=== PATIENT | male | born 1985 | race Caucasian/White ===

== ENCOUNTER → 2017-06-18 | Outpatient (CLI) | payer OTHER ==
--- NOTE | 2017-06-21 10:38 | HM ---
HOLTER MONITOR REPORT [facility] [place] DATE OF SERVICE: 06/18/2017 The patient was monitored for 24 hours. The baseline rhythm is sinus mechanism with a minimum heart rate of 46 beats per minute, max heart rate 153 beats per minute and average heart rate of 78 beats per minute. Ventricular ectopic events were presented and less than 1% of the total beats count. Supraventricular ectopic events were present in less than 1% of the total beats count as well. No evidence of any sustained tachy and/or bradyarrhythmia beside sinus tachycardia. No evidence of any advanced AV block. The patient reports symptoms of heart pounding and the symptoms were associated with sinus tachycardia. CONCLUSION: 1. Sinus rhythm as the baseline mechanism. 2. Rare ventricular ectopic events. 3. Rare supraventricular ectopic events. 4. No evidence of sinus pause or sinus arrest. 5. The patient reported some symptoms of heart pounding and these symptoms were associated with sinus tachycardia. MMODL / IJN: [id number] /
== END | disposition home or self-care (01) ==
LOC: RADECHMAIN 11:51
PROVIDERS: ATTEND Internal Medicine
DX: I49.9 Cardiac arrhythmia, unspecified (principal); R55 Syncope and collapse
CPT/HCPCS: 93225; 93226

== ENCOUNTER 2017-06-19 13:55 | Emergency (ER) | payer OTHER ==
[2017-06-19 14:00] VITALS: RESP 18
[2017-06-19] MEDS ORDERED: KETOROLAC 30 MG/ML 1 ML VIAL IVP STA (14:05)
[2017-06-19] MEDS ORDERED: HYDROmorphone 2 MG/ML 1 ML SYRINGE IVP STA (14:05)
[2017-06-19] MEDS ORDERED: ONDANSETRON 4 MG/2 ML VIAL IVP STA (14:05)
[2017-06-19] MEDS ORDERED: SODIUM CHLORIDE 0.9% 1,000 ML IV STA (14:05)
--- NOTE | 2017-06-19 14:14 | ED ---
General Adult HPI - General Chief complaint: Abdominal Pain Stated complaint: Abd Pain Time Seen by Provider: 06/19/17 14:00 Source: patient, EMS, RN notes reviewed Mode of arrival: EMS Limitations: no limitations - History of Present Illness Initial comments: This is a 31-year-old male who presents to the emergency department with a left- sided flank pain which was sudden in onset. Patient states she went to the bathroom and urinated and then started having a bowel movement had severe pain to the point where he was breaking out in a sweat. Patient states the pain did not move anywhere but does calm and go in intensity. Patient states when it is intense it's almost unbearable. Patient states he slightly nauseated when the pain is very bad is somewhat lightheaded. Patient denies any abdominal pain. Patient denies any nausea vomiting or diarrhea. Patient denies any recent fever chills. Patient denies any chest pain difficult breathing shortness of breath. Patient denies any injury recently. Patient states she's never had pain like this in the past. Patient denies any history of kidney stones. Patient denies any dysuria or hematuria. - Related Data Home Medications Medication Instructions Recorded Confirmed Albuterol Inhaler [Ventolin Hfa 1 - 2 puff INHALATION RT-Q6H PRN 06/19/17 Inhaler] Albuterol Nebulized [Ventolin 2.5 mg INHALATION RT-Q6H PRN 06/19/17 06/19/17 Nebulized] Previous Rx's Medication Instructions Recorded Ketorolac [Toradol] 10 mg PO Q6HR #15 tab 06/19/17 Allergies Allergy/AdvReac Type Severity Reaction Status Date / Time Penicillins Allergy Unknown Verified 06/19/17 14:32 Childhood shellfish derived [Shellfish] Allergy Unknown Verified 06/19/17 14:32 Review of Systems ROS Statement: Those systems with pertinent positive or pertinent negative responses have been documented in the HPI. ROS Other: All systems not noted in ROS Statement are negative. Past Medical History Past Medical History: Asthma History of Any Multi-Drug Resistant Organisms: None Reported Past Surgical History: Orthopedic Surgery Additional Past Surgical History / Comment(s): right ankle, mouth surgery Past Psychological History: No Psychological Hx Reported Smoking Status: Never smoker Past Alcohol Use History: None Reported Past Drug Use History: Marijuana General Exam - General Exam Comments Initial Comments: GENERAL: Patient is well-developed and well-nourished. Patient is nontoxic and well- hydrated and is in moderate distress. ENT: Neck is soft and supple. No significant lymphadenopathy is noted. Oropharynx is clear. Moist mucous membranes. Neck has full range of motion without eliciting any pain. EYES: The sclera were anicteric and conjunctiva were pink and moist. Extraocular movements were intact and pupils were equal round and reactive to light. Eyelids were unremarkable. PULMONARY: Unlabored respirations. Good breath sounds bilaterally. No audible rales rhonchi or wheezing was noted. CARDIOVASCULAR: There is a regular rate and rhythm without any murmurs gallops or rubs. ABDOMEN: Soft and nontender with normal bowel sounds. No palpable organomegaly was noted. There is no palpable pulsatile mass. SKIN: Skin is clear with no lesions or rashes and otherwise unremarkable. NEUROLOGIC: Patient is alert and oriented x3. Cranial nerves II through XII are grossly intact. Motor and sensory are also intact. Normal speech, volume and content. Symmetrical smile. MUSCULOSKELETAL: Normal extremities with adequate strength and full range of motion. LYMPHATICS: No significant lymphadenopathy is noted PSYCHIATRIC: Normal psychiatric evaluation. Limitations: no limitations Course Vital Signs 06/19/17 13:58 Temperature 97.9 F Pulse Rate 60 Respiratory 18 Rate Blood Pressure 136/95 O2 Sat by Pulse 100 Oximetry Medical Decision Making - Medical Decision Making Patient's CT showed no acute abnormalities. Patient urinated while in the emergency department prior to his CAT scan and patient passed a stone at that time. Patient has been pain-free since. - Lab Data Result diagrams: 06/19/17 14:08 06/19/17 14:08 Lab Results 06/19/17 06/19/17 06/19/17 Range/Units 14:08 14:08 14:59 WBC 7.0 (3.8-10.6) k/uL RBC 5.07 (4.30-5.90) m/uL Hgb 15.0 (13.0-17.5) gm/dL Hct 44.7 (39.0-53.0) % MCV 88.1 (80.0-100.0) fL MCH 29.5 (25.0-35.0) pg MCHC 33.5 (31.0-37.0) g/dL RDW 13.5 (11.5-15.5) % Plt Count 226 (150-450) k/uL Neutrophils % 55 % Lymphocytes % 37 % Monocytes % 4 % Eosinophils % 2 % Basophils % 1 % Neutrophils # 3.8 (1.3-7.7) k/uL Lymphocytes # 2.6 (1.0-4.8) k/uL Monocytes # 0.3 (0-1.0) k/uL Eosinophils # 0.2 (0-0.7) k/uL Basophils # 0.0 (0-0.2) k/uL Sodium 140 (137-145) mmol/L Potassium 4.0 (3.5-5.1) mmol/L Chloride 108 H (98-107) mmol/L Carbon Dioxide 21 L (22-30) mmol/L Anion Gap 11 mmol/L BUN 16 (9-20) mg/dL Creatinine 1.00 (0.66-1.25) mg/dL Est GFR (MDRD) Af Amer >60 (>60 ml/min/1.73 sqM) Est GFR (MDRD) Non-Af >60 (>60 ml/min/1.73 sqM) Glucose 101 H (74-99) mg/dL Calcium 9.6 (8.4-10.2) mg/dL Total Bilirubin 0.5 (0.2-1.3) mg/dL AST 22 (17-59) U/L ALT 42 (21-72) U/L Alkaline Phosphatase 69 (38-126) U/L Total Protein 6.9 (6.3-8.2) g/dL Albumin 4.1 (3.5-5.0) g/dL Amylase 48 (30-110) U/L Lipase 71 (23-300) U/L Urine Color Yellow Urine Appearance Clear (Clear) Urine pH 5.5 (5.0-8.0) Ur Specific Grace 1.017 (1.001-1.035) Urine Protein Negative (Negative) Urine Glucose (UA) Negative (Negative) Urine Ketones Negative (Negative) Urine Blood Moderate H (Negative) Urine Nitrite Negative (Negative) Urine Bilirubin Negative (Negative) Urine Urobilinogen <2.0 (<2.0) mg/dL Ur Leukocyte Esterase Negative (Negative) Urine RBC 9 H (0-5) /hpf Urine WBC 1 (0-5) /hpf Urine Bacteria Rare H (None) /hpf Hyaline Casts 1 (0-2) /lpf Urine Mucus Occasional H (None) /hpf Disposition Clinical Impression: Kidney stone Disposition: HOME SELF-CARE Condition: Good Instructions: Kidney Stones (ED) Prescriptions: Ketorolac [Toradol] 10 mg PO Q6HR #15 tab Referrals: Gwen Swenson MD [Primary Care Provider] - 1-2 days Time of Disposition: 15:28
[2017-06-19 14:30] LABS: ALT 42 U/L (21-72); AST 22 U/L (17-59); Albumin 4.1 g/dL (3.5-5.0); Alkaline Phosphatase 69 U/L (38-126); Amylase 48 U/L (30-110); Anion Gap 11 mmol/L; Blood Urea Nitrogen 16 mg/dL (9-20); Calcium 9.6 mg/dL (8.4-10.2); Carbon Dioxide 21 mmol/L (22-30); Chloride 108 mmol/L (98-107); Glucose 101 mg/dL (74-99); Lipase 71 U/L (23-300); Sodium 140 mmol/L (137-145); Total Bilirubin 0.5 mg/dL (0.2-1.3); Total Protein 6.9 g/dL (6.3-8.2)
[2017-06-19 14:32] LABS: Basophils % (A) 1 %; Eosinophils # (A) 0.2 k/uL (0-0.7); Eosinophils % (A) 2 %; HCT 44.7 % (39.0-53.0); Lymphocytes # (A) 2.6 k/uL (1.0-4.8); Lymphocytes % (A) 37 %; MCH 29.5 pg (25.0-35.0); MCHC 33.5 g/dL (31.0-37.0); MCV 88.1 fL (80.0-100.0); Mean Platelet Volume 6.5; Monocytes # (A) 0.3 k/uL (0-1.0); Monocytes % (A) 4 %; Neutrophils # (A) 3.8 k/uL (1.3-7.7); Neutrophils % (A) 55 %; Platelet Count 226 k/uL (150-450); RBC 5.07 m/uL (4.30-5.90); RDW 13.5 % (11.5-15.5)
--- NOTE | 2017-06-19 14:45 | XR ---
EXAMINATION TYPE: XR KUB DATE OF EXAM: 06/19/2017 2:38 PM CLINICAL HISTORY: Left flank pain. TECHNIQUE: Two Upright KUB images of the abdomen are obtained. COMPARISON: None. FINDINGS: Scattered gas is seen in non-distended small bowel loops. Gas and fecal material is seen in non-distended colon. There is no visceromegaly, pneumoperitoneum, or abnormal calcification apprecia josep. The lung bases are clear and the osseous structures are intact. IMPRESSION: Overall nonobstructive bowel gas pattern. No definite nephrolithiasis.
[2017-06-19 15:10] LABS: Appearance,Urine Clear (Clear); Bacteria,Urine Rare /hpf; Bilirubin,Urine Negative (Negative); Blood,Urine Moderate (Negative); Color,Urine Yellow; Glucose,Urine (UA) Negative (Negative); Hyaline Casts,Urine 1 /lpf (0-2); Ketones,Urine Negative (Negative); Leukocyte Esterase,Urine Negative (Negative); Mucus,Urine Occasional /hpf; Nitrite,Urine Negative (Negative); PH, Urine 5.5 (5.0-8.0); Protein,Urine Negative (Negative); RBC,Urine 9 /hpf (0-5); Specific Gravity,Urine 1.017 (1.001-1.035); Urobilinogen,Urine <2.0 mg/dL (<2.0); WBC,Urine 1 /hpf (0-5)
--- NOTE | 2017-06-19 15:18 | CT ---
EXAMINATION TYPE: CT abdomen pelvis wo con DATE OF EXAM: 06/19/2017 HISTORY: Left flank pain. Patient states he passed stone before I took him for CT. CT DLP: 1126 mGycm. Automated Exposure Control for Dose Reduction was Utilized. TECHNIQUE: CT scan of the abdomen and pelvis is performed without oral or IV contrast. COMPARISON: NONE FINDINGS: Within the limitations of a non-contrast study, the following observations are made. LUNG BASES: No significant abnormality is appreciated. LIVER/GB: Visualized liver cyst heterogeneously slightly hypodense relative to spleen consistent with mild diffuse fatty infiltration. PANCREAS: No significant abnormality is seen. SPLEEN: No significant abnormality is seen. ADRENALS: No significant abnormality is seen. KIDNEYS: No renal stones or hydronephrosis is evident bilaterally currently. No intraluminal calculus is seen in poorly distended bladder. BOWEL: Normal-appearing appendix is seen from cecum in the right lower quadrant. GENITAL ORGANS: No gross abnormality seen. LYMPH NODES: No greater than 1cm abdominal or pelvic lymph nodes are appreciated. OSSEOUS STRUCTURES: No significant abnormality is seen. OTHER: No significant additional abnormality is seen. IMPRESSION: No renal stones or hydronephrosis is seen bilaterally. No suspicious acute finding identi fied on noncontrast study.
[2017-06-19 15:58] VITALS: BP 135/87; PULSE 85; TEMP 97.8
== END 2017-06-19 15:57 | disposition home or self-care (01) ==
LOC: EC 13:55
DX: N20.0 Calculus of kidney (principal); Z88.0 Allergy status to penicillin; Z91.013 Allergy to seafood
CPT/HCPCS: 36415; 80053; 82150; 83690; 85025; 81001; 74018; 74176; 99285; 96374; 96375 ×2; 96361; J1170; J2405; J1885

== ENCOUNTER 2017-07-17 12:09 | Observation (INO) | payer OTHER ==
[2017-07-17] MEDS ORDERED: RX INFO: IV CONTRAST WAS GIVEN 1 EACH MISC MISCELLANE PRN (13:42)
[2017-07-17 13:48] LABS: Basophils % (A) 0 %; Eosinophils # (A) 0.1 k/uL (0-0.7); Eosinophils % (A) 2 %; HCT 47.3 % (39.0-53.0); HGB 15.9 gm/dL (13.0-17.5); Lymphocytes # (A) 2.1 k/uL (1.0-4.8); Lymphocytes % (A) 33 %; MCH 29.7 pg (25.0-35.0); MCHC 33.6 g/dL (31.0-37.0); MCV 88.3 fL (80.0-100.0); Mean Platelet Volume 6.6; Monocytes # (A) 0.4 k/uL (0-1.0); Monocytes % (A) 6 %; Neutrophils # (A) 3.6 k/uL (1.3-7.7); Neutrophils % (A) 57 %; Platelet Count 194 k/uL (150-450); RBC 5.35 m/uL (4.30-5.90); RDW 13.5 % (11.5-15.5); WBC 6.3 k/uL (3.8-10.6)
[2017-07-17 13:58] LABS: ALT 50 U/L (21-72); AST 25 U/L (17-59); Alkaline Phosphatase 56 U/L (38-126); Amylase 51 U/L (30-110); Anion Gap 9 mmol/L; Blood Urea Nitrogen 16 mg/dL (9-20); Calcium 9.2 mg/dL (8.4-10.2); Carbon Dioxide 24 mmol/L (22-30); Chloride 107 mmol/L (98-107); Glucose 85 mg/dL (74-99); Lipase 88 U/L (23-300); Potassium 4.4 mmol/L (3.5-5.1); Sodium 140 mmol/L (137-145); Total Bilirubin 0.5 mg/dL (0.2-1.3); Total Protein 6.7 g/dL (6.3-8.2)
[2017-07-17 14:28] LABS: Appearance,Urine Clear (Clear); Bilirubin,Urine Negative (Negative); Blood,Urine Negative (Negative); Color,Urine Yellow; Glucose,Urine (UA) Negative (Negative); Ketones,Urine Negative (Negative); Leukocyte Esterase,Urine Negative (Negative); Nitrite,Urine Negative (Negative); Protein,Urine Negative (Negative); Specific Gravity,Urine 1.014 (1.001-1.035); Urobilinogen,Urine <2.0 mg/dL (<2.0)
--- NOTE | 2017-07-17 14:30 | ED ---
Abdominal Pain HPI - General Chief Complaint: Abdominal Pain Stated Complaint: Lump above belly button Time Seen by Provider: 07/17/17 13:26 Source: patient, RN notes reviewed Mode of arrival: ambulatory Limitations: no limitations - History of Present Illness Initial Comments: 32-year-old male presents emergency Department chief complaint abdominal discomfort. Patient had increase abdominal pain last couple days. Patient states that he has a lump just superior to his umbilicus and states is painful. Patient saw his primary care physician who gave him antibiotics concern for possible infection. Patient is also scheduled for an ultrasound in July. Patient denies any current nausea vomiting diarrhea constipation. Denies any dysuria no prior abdominal surgeries. - Related Data Home Medications Medication Instructions Recorded Confirmed Albuterol Inhaler [Ventolin Hfa 1 - 2 puff INHALATION RT-Q6H PRN 06/19/17 Inhaler] Albuterol Nebulized [Ventolin 2.5 mg INHALATION RT-Q6H PRN 06/19/17 07/17/17 Nebulized] Clindamycin HCl 300 mg PO Q8H 07/17/17 07/17/17 Allergies Allergy/AdvReac Type Severity Reaction Status Date / Time Penicillins Allergy Unknown Verified 07/17/17 13:48 Childhood shellfish derived [Shellfish] Allergy Unknown Verified 07/17/17 13:48 Review of Systems ROS Statement: Those systems with pertinent positive or pertinent negative responses have been documented in the HPI. ROS Other: All systems not noted in ROS Statement are negative. Past Medical History Past Medical History: Asthma History of Any Multi-Drug Resistant Organisms: None Reported Past Surgical History: Orthopedic Surgery Additional Past Surgical History / Comment(s): right ankle, mouth surgery Past Psychological History: No Psychological Hx Reported Smoking Status: Never smoker Past Alcohol Use History: None Reported Past Drug Use History: Marijuana General Exam Limitations: no limitations General appearance: alert, in no apparent distress Head exam: Present: atraumatic, normocephalic, normal inspection Eye exam: Present: normal appearance, PERRL, EOMI. Absent: scleral icterus, conjunctival injection, periorbital swelling Neck exam: Present: normal inspection. Absent: tenderness, meningismus, lymphadenopathy Respiratory exam: Present: normal lung sounds bilaterally. Absent: respiratory distress, wheezes, rales, rhonchi, stridor Cardiovascular Exam: Present: regular rate, normal rhythm, normal heart sounds. Absent: systolic murmur, diastolic murmur, rubs, gallop, clicks GI/Abdominal exam: Present: soft, tenderness (Tenderness superior to the umbilicus), normal bowel sounds, hernia (Palpable hernia or mass noted just superior to the umbilicus mild tenderness). Absent: distended, guarding, rebound, rigid Back exam: Absent: CVA tenderness (R), CVA tenderness (L) Skin exam: Present: warm, dry, intact, normal color. Absent: rash Course Vital Signs 07/17/17 07/17/17 12:52 14:17 Temperature 97.5 F L 98.0 F Pulse Rate 61 69 Respiratory 18 18 Rate Blood Pressure 131/76 145/91 O2 Sat by Pulse 99 99 Oximetry Medical Decision Making - Lab Data Result diagrams: 07/17/17 13:37 07/17/17 13:37 Lab Results 07/17/17 07/17/17 07/17/17 Range/Units 13:37 13:37 14:15 WBC 6.3 (3.8-10.6) k/uL RBC 5.35 (4.30-5.90) m/uL Hgb 15.9 (13.0-17.5) gm/dL Hct 47.3 (39.0-53.0) % MCV 88.3 (80.0-100.0) fL MCH 29.7 (25.0-35.0) pg MCHC 33.6 (31.0-37.0) g/dL RDW 13.5 (11.5-15.5) % Plt Count 194 (150-450) k/uL Neutrophils % 57 % Lymphocytes % 33 % Monocytes % 6 % Eosinophils % 2 % Basophils % 0 % Neutrophils # 3.6 (1.3-7.7) k/uL Lymphocytes # 2.1 (1.0-4.8) k/uL Monocytes # 0.4 (0-1.0) k/uL Eosinophils # 0.1 (0-0.7) k/uL Basophils # 0.0 (0-0.2) k/uL Sodium 140 (137-145) mmol/L Potassium 4.4 (3.5-5.1) mmol/L Chloride 107 (98-107) mmol/L Carbon Dioxide 24 (22-30) mmol/L Anion Gap 9 mmol/L BUN 16 (9-20) mg/dL Creatinine 1.07 (0.66-1.25) mg/dL Est GFR (MDRD) Af Amer >60 (>60 ml/min/1.73 sqM) Est GFR (MDRD) Non-Af >60 (>60 ml/min/1.73 sqM) Glucose 85 (74-99) mg/dL Calcium 9.2 (8.4-10.2) mg/dL Total Bilirubin 0.5 (0.2-1.3) mg/dL AST 25 (17-59) U/L ALT 50 (21-72) U/L Alkaline Phosphatase 56 (38-126) U/L Total Protein 6.7 (6.3-8.2) g/dL Albumin 4.0 (3.5-5.0) g/dL Amylase 51 (30-110) U/L Lipase 88 (23-300) U/L Urine Color Yellow Urine Appearance Clear (Clear) Urine pH 5.0 (5.0-8.0) Ur Specific Manson 1.014 (1.001-1.035) Urine Protein Negative (Negative) Urine Glucose (UA) Negative (Negative) Urine Ketones Negative (Negative) Urine Blood Negative (Negative) Urine Nitrite Negative (Negative) Urine Bilirubin Negative (Negative) Urine Urobilinogen <2.0 (<2.0) mg/dL Ur Leukocyte Esterase Negative (Negative) Disposition Clinical Impression: Incarcerated hernia Disposition: ADMITTED IP TO THIS [facility] Condition: Stable Referrals: Gwen Swenson MD [Primary Care Provider] - 1-2 days
--- NOTE | 2017-07-17 15:04 | CT ---
EXAMINATION TYPE: CT abdomen pelvis w con DATE OF EXAM: 07/17/2017 COMPARISON: 06/19/2017 HISTORY: 32-year-old male lump over umbilicus, pain TECHNIQUE: Contiguous axial scanning of the abdomen and pelvis following administration of 100 ml Omn ipaque 300 IV contrast. Delayed images through the kidneys and coronal/sagittal reconstructions perf ormed. CT DLP: 1744.7 mGycm Automated exposure control for dose reduction was used. FINDINGS: Heart is normal size without pericardial effusion. Lung bases clear without pleural effusion. Liver enlarged measuring 20.1 cm craniocaudal possibly secondary to a Florinda's lobe. However, there i s low attenuation compared to the spleen on portal venous phase suggesting fatty infiltration. Portal venous system is patent. No biliary ductal dilatation. Gallbladder, adrenal glands, kidneys, spleen, and pancreas appear within normal limits. No dilated small bowel, free fluid, or free air. No mesenteric or retroperitoneal lymphadenopathy. Normal appendix. Scattered mild stool. No pericolonic inflammatory change. There are 2 small periumbilical hernias, one superiorly and one just below. The more superior hernia measures 1.7 cm wide with a narrow 5 mm neck. Associated inflammatory fat stranding extending deep in to the omental fat. The more inferior hernia measures 1.9 cm craniocaudal with a 6 mm narrowneck. The fat stranding of the superior hernia is new from 06/19/2017. Bladder not distended. Some pelvic fluid glands are noted. No abnormal fluid collection in the pelvis or pelvic lymphadenopathy. Bones: No osseous destructive process. IMPRESSION: 1. 2 SMALL OMENTAL FAT-CONTAINING PERIUMBILICAL HERNIAS MEASURING UP TO 1.9 CM. THESE SHOW NARROW NEC KS UP TO 6 MM. THE MORE SUPERIOR HERNIA NOW SHOWS INFLAMMATORY FAT STRANDING EXTENDING INTO THE OMEN J LUIS JUST ADJACENT. CONSIDER INFLAMMATION RELATING TO HERNIA INCARCERATION OR EARLY STRANGULATION. 2. HEPATOMEGALY AND HEPATIC STEATOSIS.
[2017-07-17] MEDS ORDERED: ACETAMINOPHEN TAB 325 MG TAB PO PRN (15:40)
[2017-07-17] MEDS ORDERED: HYDROcodone/APAP 5-325MG 1 EACH TAB PO PRN (15:40)
[2017-07-17] MEDS ORDERED: ONDANSETRON 4 MG/2 ML VIAL IVP PRN (18:22)
[2017-07-17] MEDS ORDERED: ALBUTEROL NEBULIZED 2.5 MG/3 ML INHALATION PRN (18:23)
[2017-07-17] MEDS: LACTATED RINGERS 1,000 ML IV SCH (20:27)
[2017-07-17 23:39] VITALS: PULSE 63
[2017-07-18] MEDS: LACTATED RINGERS 1,000 ML IV SCH ×2 (02:59→10:47)
[2017-07-18 07:01] VITALS: BP 105/53; RESP 16; TEMP 96.3
--- NOTE | 2017-07-18 11:35 | P.GSHP ---
History of Present Illness H&P Date: 07/18/17 32-year-old male presented to the emergency room with a chief complaint of developing pain with palpable small lump superior to the umbilicus. Patient states that he pushed on the site it created a sensation of pain. Patient states that he noted the lump superior to the umbilicus last Sunday. He notified his primary care provider Dr. Ralph on Sunday who gave him a prescription for antibiotics thinking it was possible infection. Patient stated his PCP scheduled an ultrasound which was to be done July 25 to evaluate the lump. Patient stated that he could not wait until July 25 they came into the emergency room to be evaluated for the above-mentioned symptoms. Patient denies any prior episodes. Denied any nausea vomiting diarrhea constipation no change in bowel habits no difficulty in urinating. No fever chills. Patient stated that he continued to have tenderness superior to the umbilicus. Stated that there was no abdominal distention. CAT scan of the abdomen pelvis obtained in the emergency room did show small omental fat-containing periumbilical hernia measuring up to 1.9 cm Small palpable lump superior to the umbilicus noted Patient is adamant this morning that he wants to have food he wants to eat he's hungry he doesn't get something to eat now he will get sick patient states he does not want to wait to have the surgery done here this admission he wants to be discharged set up to see the surgeon in the outpatient setting spend greater than 15 minutes discussing with the patient and the patient's mother at the bedside the plan of care. As well as the rationale for not being able to feed the patient is scheduled today for surgery. Patient states he does not want to have the surgery this late in the in the day he wants to come back to have it scheduled first thing in the morning so that he can eat past surgical history right ankle surgery. Oral surgery. Past medical history asthma - Review of Systems Comment: Essentially unremarkable except as mentioned in the present illness Past Medical History Past Medical History: Asthma Additional Past Medical History / Comment(s): kidney stone, migraines, eczema, narcolepsy"social anxiety" History of Any Multi-Drug Resistant Organisms: None Reported Past Surgical History: Orthopedic Surgery Additional Past Surgical History / Comment(s): right ankle sx", at age 10 months old had oral sx "overgrowth of skin over salivary gland" Past Anesthesia/Blood Transfusion Reactions: No Reported Reaction Smoking Status: Former smoker - Past Family History Father History Unknown: Yes Mother Family Medical History: Hypertension Medications and Allergies Home Medications Medication Instructions Recorded Confirmed Type Albuterol Inhaler [Ventolin Hfa 1 - 2 puff INHALATION RT-Q6H PRN 06/19/17 History Inhaler] Albuterol Nebulized [Ventolin 2.5 mg INHALATION RT-Q6H PRN 06/19/17 07/17/17 History Nebulized] Clindamycin HCl 300 mg PO Q8H 07/17/17 07/17/17 History Allergies Allergy/AdvReac Type Severity Reaction Status Date / Time Penicillins Allergy Unknown Verified 07/17/17 13:48 Childhood shellfish derived [Shellfish] Allergy Unknown Verified 07/17/17 13:48 Surgical - Exam Vital Signs Temp Pulse Resp BP Pulse Ox 97.5 F L 61 18 131/76 99 07/17/17 12:52 07/17/17 12:52 07/17/17 12:52 07/17/17 12:52 07/17/17 12:52 GENERAL APPEARANCE: 32-year-old male patient is alert, oriented x 3 , in no acute distress. VITAL SIGNS: Reviewed HEENT: Head is normocephalic and atraumatic. Pupils are equal and reactive. The nares are patent. Oropharynx is clear without lesions. NECK: Supple without lymphadenopathy. Traches midline. HEART: S1, S2. Regular rate and rhythm. No murmur noted LUNGS: No crackles or wheezes are heard. Adequate air movement no shortness breath ABDOMEN: Soft, small palpable lump superior to the umbilicus nontender, nondistended with good bowel sounds. No peritoneal signs. No palpable organomegaly or masses. Reports no nausea vomiting EXTREMITIES: Normal skin color and turgor. No cyanosis, rash, ulceration, clubbing or edema. Radial pedal pulses are 2/4 bilaterally. NEUROLOGICAL: No focal deficits. Strength and sensation are grossly intact. Results - Labs 07/17/17 13:37 07/17/17 13:37 Diabetes panel 07/17/17 Range/Units 13:37 Sodium 140 (137-145) mmol/L Potassium 4.4 (3.5-5.1) mmol/L Chloride 107 (98-107) mmol/L Carbon Dioxide 24 (22-30) mmol/L BUN 16 (9-20) mg/dL Creatinine 1.07 (0.66-1.25) mg/dL Glucose 85 (74-99) mg/dL Calcium 9.2 (8.4-10.2) mg/dL AST 25 (17-59) U/L ALT 50 (21-72) U/L Alkaline Phosphatase 56 (38-126) U/L Total Protein 6.7 (6.3-8.2) g/dL Albumin 4.0 (3.5-5.0) g/dL Calcium panel 07/17/17 Range/Units 13:37 Calcium 9.2 (8.4-10.2) mg/dL Albumin 4.0 (3.5-5.0) g/dL Pituitary panel 07/17/17 Range/Units 13:37 Sodium 140 (137-145) mmol/L Potassium 4.4 (3.5-5.1) mmol/L Chloride 107 (98-107) mmol/L Carbon Dioxide 24 (22-30) mmol/L BUN 16 (9-20) mg/dL Creatinine 1.07 (0.66-1.25) mg/dL Glucose 85 (74-99) mg/dL Calcium 9.2 (8.4-10.2) mg/dL Adrenal panel 07/17/17 Range/Units 13:37 Sodium 140 (137-145) mmol/L Potassium 4.4 (3.5-5.1) mmol/L Chloride 107 (98-107) mmol/L Carbon Dioxide 24 (22-30) mmol/L BUN 16 (9-20) mg/dL Creatinine 1.07 (0.66-1.25) mg/dL Glucose 85 (74-99) mg/dL Calcium 9.2 (8.4-10.2) mg/dL Total Bilirubin 0.5 (0.2-1.3) mg/dL AST 25 (17-59) U/L ALT 50 (21-72) U/L Alkaline Phosphatase 56 (38-126) U/L Total Protein 6.7 (6.3-8.2) g/dL Albumin 4.0 (3.5-5.0) g/dL Assessment and Plan Assessment: Impression Computed tomography scan abdomen pelvis shows evidence of a small fat- containing periumbilical hernia measuring 1.9 cm Present on admission small palpable lump superior to the umbilicus History of panic and Anxiety disorder History of asthma with no evidence of an exacerbation Morbid obesity BMI 39 Plan Timing for the surgical procedure to be addressed by dr maddox to address the periumbilical hernia IV fluid for hydration Further recommendations pending after Dr. maddox evaluates patient The above impression and plan of care have been discussed and directed by signing physician. Patsy Church nurse practitioner acting as scribe for signing physician.
--- NOTE | 2017-07-18 13:11 | P.DS ---
Providers Date of admission: 07/17/17 15:42 Expected date of discharge: 07/18/17 Attending physician: Braxton Wilder Consults: 07/18/17 10:00 Consult Physician Urgent Consulting Provider: Kelly Cantu Consult Reason/Comments: med mtg Do you want consulting provider notified?: Yes Primary care physician: Leela Adams [facility] Course: 32-year-old male presented to the emergency room with a chief complaint of developing pain with palpable small lump superior to the umbilicus. Patient states that he pushed on the site it created a sensation of pain. Patient states that he noted the lump superior to the umbilicus last Sunday. He notified his primary care provider Dr. Ralph on Sunday who gave him a prescription for antibiotics thinking it was possible infection. Patient stated his PCP scheduled an ultrasound which was to be done July 25 to evaluate the lump. Patient stated that he could not wait until July 25 they came into the emergency room to be evaluated for the above-mentioned symptoms. Patient denies any prior episodes. Denied any nausea vomiting diarrhea constipation no change in bowel habits no difficulty in urinating. No fever chills. Patient stated that he continued to have tenderness superior to the umbilicus. Stated that there was no abdominal distention. CAT scan of the abdomen pelvis obtained in the emergency room did show small omental fat-containing periumbilical hernia measuring up to 1.9 cm Small palpable lump superior to the umbilicus noted patient states he does not want to wait to have the surgery done here this admission he wants to be discharged set up to see the surgeon in the outpatient setting Impression Computed tomography scan abdomen pelvis shows evidence of a small fat- containing periumbilical hernia measuring 1.9 cm Present on admission small palpable lump superior to the umbilicus History of panic and Anxiety disorder History of asthma with no evidence of an exacerbation Morbid obesity BMI 39 The above impression and plan of care have been discussed and directed by signing physician. Patsy Church nurse practitioner acting as scribe for signing physician. Patient Condition at Discharge: Stable Plan - Discharge Summary Discharge Rx Participant: No New Discharge Prescriptions: New Acetaminophen Tab [Tylenol] 650 mg PO Q6HR PRN tab PRN Reason: Mild Pain Or Fever > 100.5 Continue Albuterol Nebulized [Ventolin Nebulized] 2.5 mg INHALATION RT-Q6H PRN PRN Reason: Shortness Of Breath Albuterol Inhaler [Ventolin Hfa Inhaler] 1 - 2 puff INHALATION RT-Q6H PRN PRN Reason: Shortness Of Breath Clindamycin HCl 300 mg PO Q8H Discharge Medication List Albuterol Inhaler [Ventolin Hfa Inhaler] 1 - 2 puff INHALATION RT-Q6H PRN [History] Albuterol Nebulized [Ventolin Nebulized] 2.5 mg INHALATION RT-Q6H PRN 06/19/17 [ History] Clindamycin HCl 300 mg PO Q8H 07/17/17 [History] Acetaminophen Tab [Tylenol] 650 mg PO Q6HR PRN tab 07/18/17 [Rx] Follow up Appointment(s)/Referral(s): Gwen Swenson MD [Primary Care Provider] - As Needed (Post surgery) Braxton Wilder MD [STAFF PHYSICIAN] - 07/24/17 2:30 pm Patient Instructions/Handouts: Umbilical Hernia (DC) Activity/Diet/Wound Care/Special Instructions: Activity as tolerated. Soft, bland diet. Discharge Disposition: HOME SELF-CARE
--- NOTE | 2017-07-18 21:18 | CONS ---
CONSULTATION DATE OF SERVICE: 07/18/2017 This 32-year-old gentleman was admitted with abdominal pain above the umbilicus. He was noted to have a small fat-containing periumbilical hernia. The patient also had history of panic attacks and anxiety disorder. The patient is followed by Dr. Swenson in the outpatient setting. Dr. Wilder is following the patient closely. No chest pain. No palpitations. No fever. PAST MEDICAL HISTORY: History of asthma, history of nephrolithiasis, history of migraine, history of eczema, history of narcolepsy, social anxiety, history of DJD, history of anxiety. MEDICATIONS PRIOR TO ADMISSION: Include home medications are: 1. Albuterol 2.5 every 6 hours p.r.n. 2. Ventolin HFA p.r.n. 3. Tylenol every 6 hours p.r.n. ALLERGIES: SHELLFISH. FAMILY HISTORY: History of hypertension in the family. SOCIAL HISTORY: History of occasional alcohol and history of THC. Remote history of nicotine dependence. REVIEW OF SYSTEMS: ENT: No diminished hearing, diminished vision. CARDIOVASCULAR: No angina, palpitations. RESPIRATORY: No cough. GI: As mentioned earlier. : No dysuria. NERVOUS: No numbness or weakness. ALLERGY/IMMUNOLOGY: No asthma or hay fever. MUSCULOSKELETAL: As mentioned earlier. HEMATOLOGY/ONCOLOGY: No history of anemia. ENDOCRINE: No history of diabetes, hypothyroidism. CONSTITUTIONAL: As mentioned earlier. DERMATOLOGY: Negative. RHEUMATOLOGY: Negative. PSYCHIATRY: As mentioned earlier. PHYSICAL EXAMINATION: Alert, oriented x3. The pulse is ntd, blood pressure 135/70, respirations 14, temperature 97.5, pulse ox 97% on room air. HEENT: Conjunctivae normal. NECK: No jugular venous distention. CARDIOVASCULAR: S1, S2 muffled. RESPIRATORY: Breath sounds diminished in the bases. No rhonchi. No crackles. ABDOMEN: Soft, obese. There is mild swelling just above the umbilicus present, nontender. Bowel sounds present. No ascites. LEGS: No edema. No swelling. NERVOUS SYSTEM: Higher functions as mentioned earlier. Moves all 4 limbs. No focal motor or sensory deficits. LYMPHATIC: No lymphadenopathy in neck or axillae. SKIN: No ulcer, rash or bleeding. JOINTS: No active deforming arthropathy. LABS: CBC, CMP within normal limits. ASSESSMENT: 1. Small fat-containing periumbilical hernia. 2. History of panic and anxiety attacks. 3. History of asthma. 4. Obesity with body mass of 39.5. 5. History of nephrolithiasis. 6. History of eczema. 7. History of narcolepsy. RECOMMENDATIONS AND DISCUSSION: In this 32-year-old gentleman who presented with multiple complex medical issues , will monitor the patient closely, continue the current medical management and symptomatic treatment. I recommend continuing the current medications, bronchodilators and also recommend closely follow with Surgery. It seems like Surgery is planning to discharge the patient and get the patient back at a later date for definitive surgery. In any case, the prognosis is guarded, stable currently. Further recommendations to follow. MMODL / IJN: [id number] / REJI
== END 2017-07-18 14:32 | disposition home or self-care (01) ==
LOC: EC 12:09 → 6PED 15:42 → INTOOBSV 15:42 → 4MS4W 16:36 → UNDODISIN 07-18 14:32
PROVIDERS: ADMIT Surgery; ATTEND Surgery
DX: K42.9 Umbilical hernia without obstruction or gangrene (principal); E66.01 Morbid (severe) obesity due to excess calories; G47.419 Narcolepsy without cataplexy; J45.909 Unspecified asthma, uncomplicated; F40.10 Social phobia, unspecified; Z68.39 Body mass index [BMI] 39.0-39.9, adult; Z88.0 Allergy status to penicillin; Z91.013 Allergy to seafood; Z79.899 Other long term (current) drug therapy; Z86.59 Personal history of other mental and behavioral disorders; Z82.49 Family history of ischemic heart disease and other diseases of the circulatory system; Z87.891 Personal history of nicotine dependence; Z87.442 Personal history of urinary calculi; Z86.69 Personal history of other diseases of the nervous system and sense organs
CPT/HCPCS: 99285; 36415; 94640; 80053; 82150; 83690; 85025; 81003; 74177; G0378 ×2; Q9967

== ENCOUNTER → 2017-08-06 | Outpatient (CLI) | payer OTHER ==
[2017-08-06 14:56] LABS: Basophils % (A) 1 %; Eosinophils # (A) 0.2 k/uL (0-0.7); Eosinophils % (A) 3 %; HCT 43.7 % (39.0-53.0); HGB 14.7 gm/dL (13.0-17.5); Lymphocytes # (A) 2.1 k/uL (1.0-4.8); Lymphocytes % (A) 36 %; MCH 29.2 pg (25.0-35.0); MCHC 33.7 g/dL (31.0-37.0); MCV 86.7 fL (80.0-100.0); Mean Platelet Volume 6.9; Monocytes # (A) 0.3 k/uL (0-1.0); Monocytes % (A) 6 %; Neutrophils % (A) 53 %; Platelet Count 187 k/uL (150-450); RBC 5.04 m/uL (4.30-5.90); RDW 13.6 % (11.5-15.5); WBC 5.7 k/uL (3.8-10.6)
== END | disposition home or self-care (01) ==
LOC: LABPAT 14:28
PROVIDERS: ATTEND Surgery
DX: Z01.812 Encounter for preprocedural laboratory examination (principal); D64.9 Anemia, unspecified; K42.0 Umbilical hernia with obstruction, without gangrene; K43.0 Incisional hernia with obstruction, without gangrene; K43.9 Ventral hernia without obstruction or gangrene; F17.200 Nicotine dependence, unspecified, uncomplicated
CPT/HCPCS: 36415; 85025

== ENCOUNTER 2017-08-08 08:13 | Day surgery (SDC) | payer OTHER ==
[2017-07-27 14:25] VITALS: BMI 39.4
[~2017-08-08 08:13] MED LIST: HEPARIN SODIUM,PORCINE 5,000 UNIT/ML 1 ML VIAL SQ ONE; HYDROmorphone 0.5 MG/0.5 ML SYRINGE IVP PRN; LACTATED RINGERS 1,000 ML IV SCH; ONDANSETRON 4 MG/2 ML VIAL IVP PRN
[2017-08-08] MEDS ORDERED: LIDOCAINE 1% 20 ML VIAL (10MG/ML) FOR IV START INTRADERMA ONE (09:12)
--- NOTE | 2017-08-08 09:46 | P.GSHP ---
History of Present Illness H&P Date: 08/08/17 Chief Complaint: Umbilical and ventral hernia This is a 32-year-old male referred from Dr. jay. Patient rents today for laparoscopic robotic-assisted repair of umbilical and incarcerated ventral hernia. Past Medical History Past Medical History: Asthma Additional Past Medical History / Comment(s): kidney stone, migraines, eczema, narcolepsy History of Any Multi-Drug Resistant Organisms: None Reported Past Surgical History: Orthopedic Surgery Additional Past Surgical History / Comment(s): right ankle sx", at age 10 months old had oral sx "overgrowth of skin over salivary gland" Past Anesthesia/Blood Transfusion Reactions: No Reported Reaction Past Psychological History: Anxiety Additional Psychological History / Comment(s): pt stated he is on disabilty d/t rt ankle, narcolepsy and social anxiety. lives with his girl friend and daughter. has nebulizer. Smoking Status: Former smoker Past Alcohol Use History: Rare Additional Past Alcohol Use History / Comment(s): started smoking at age 20 and quit age 26, smoked 1/2 ppd. Past Drug Use History: Marijuana Additional Drug Use History / Comment(s): DAILY MARIJUANA USER - Past Family History Father History Unknown: Yes Mother Family Medical History: Hypertension Medications and Allergies Home Medications Medication Instructions Recorded Confirmed Type Albuterol Inhaler [Ventolin Hfa 1 - 2 puff INHALATION RT-Q6H PRN 06/19/17 History Inhaler] Albuterol Nebulized [Ventolin 2.5 mg INHALATION RT-Q6H PRN 06/19/17 07/27/17 History Nebulized] Allergies Allergy/AdvReac Type Severity Reaction Status Date / Time Penicillins Allergy Unknown Verified 07/27/17 14:19 Childhood shellfish derived [Shellfish] Allergy Unknown Verified 07/27/17 14:19 Surgical - Exam Vital Signs Temp Pulse BP Pulse Ox 97.7 F 77 140/86 100 08/08/17 09:10 08/08/17 09:10 08/08/17 09:10 08/08/17 09:10 - General well developed, no distress - Eyes PERRL - ENT normal pinna - Neck no masses - Respiratory normal expansion - Cardiovascular Rhythm: regular - Abdomen Abdomen: soft Hernia: none, umbilical (Umbilical, 3 cm ventral hernia located above the umbilicus) Assessment and Plan Assessment: Incarcerated ventral and umbilical hernia. We'll perform laparoscopic robotic system repair.
[2017-08-08] MEDS ORDERED: PROPOFOL 10 MG/ML 20 ML VIAL IV ONE (10:21)
[2017-08-08] MEDS ORDERED: ONDANSETRON 4 MG/2 ML VIAL ONE (10:21)
[2017-08-08] MEDS ORDERED: ROCURONIUM BROMIDE 10 MG/ML 10 ML VIAL IV ONE (10:21)
[2017-08-08] MEDS ORDERED: DEXAMETHASONE SOD PHOS (MDV) 100 MG/10 ML VIAL ONE (10:21)
[2017-08-08] MEDS ORDERED: HYDROmorphone (PF) 1 MG/ML ONE (10:21)
[2017-08-08] MEDS ORDERED: SUCCINYLCHOLINE CHLORIDE 100 MG/5 ML SYR IV ONE (10:21)
[2017-08-08] MEDS ORDERED: GLYCOPYRROLATE 0.2 MG/ML 2 ML VIAL ONE (10:21)
[2017-08-08] MEDS ORDERED: NEOSTIGMINE 1 MG/ML 10 ML VIAL ONE (10:21)
[2017-08-08] MEDS ORDERED: MIDAZOLAM 2 MG/2 ML VIAL ONE (10:21)
[2017-08-08] MEDS ORDERED: fentaNYL (PF) 50 MCG/ML 2 ML AMP ONE (10:21)
[2017-08-08] MEDS ORDERED: BUPIVACAINE (PF) 0.25% 30 ML VIAL SQ ONE (10:46)
--- NOTE | 2017-08-08 11:30 | P.OP ---
Date of Procedure: 08/08/17 Preoperative Diagnosis: Incarcerated umbilical hernia Incarcerated ventral hernia Postoperative Diagnosis: Incarcerated umbilical hernia Incarcerated ventral hernia Procedure(s) Performed: Laparoscopic robotic repair of incarcerated ventral and umbilical hernia Laparoscopic excision of incarcerated omentum Laparoscopic lysis of adhesions Anesthesia: OLIVA Surgeon: Braxton Wilder Estimated Blood Loss (ml): 5 Pathology: other (Omentum) Condition: stable Disposition: PACU Description of Procedure: The patient was placed on the operating table in the supine position. He received general anesthesia. His abdomen was prepped and draped usual fashion. Using a 5 mm optical trocar under direct visualization the peritoneal cavity was entered in the left upper quadrant. The abdomen was then insufflated. The laparoscope was placed back into the perineal cavity. Next a 8 mm robotic trocar was placed in the left lower quadrant and a 12 mm robotic trocar was placed in the left lateral position. The original 5 mm trocar was exchanged for a 8 mm robotic trocar. The patient's placed in the left side up position. And the patient was docked to the robot. The patient was visualized there were adhesions on the abdominal wall. The adhesions were lysed using the hook cautery. And then the incarcerated umbilical and ventral hernia was visualized. The umbilical hernia was visualized. Using hook cautery the peritoneum over the incisional hernia was excised. The omentum was withdrawn from the hernia. This was transected. Next the incarcerated omentum was withdrawn from the ventral hernia and it was also transected with the hook cautery. The fascial opening was repaired using 0V LOC suture. Next a piece of 11 cm round ventral light ST mesh was placed into the. Cavity and secured with 2 OV lock suture. The patient was undocked the robot. The needles were retrieved. The incarcerated omentum was withdrawn. The fascia of the 12 mm trocar site was closed with 0 Ethibond suture. Skin was closed interrupted 3-0 Monocryl suture. Dermabond dressings was applied. Patient tolerated procedure well and was sent to recovery room stable condition.
[2017-08-08] MEDS ORDERED: fentaNYL (PF) 50 MCG/ML 2 ML AMP IVP ONE ×2 (11:50→11:57)
[2017-08-08 11:55] VITALS: TEMP 97
[2017-08-08] MEDS ORDERED: MEPERIDINE 50 MG/ML SYRINGE IVP ONE ×2 (12:05→12:34)
[2017-08-08] MEDS ORDERED: ONDANSETRON 4 MG/2 ML VIAL IVP ONE (12:15)
[2017-08-08] MEDS ORDERED: HYDROcodone/APAP 7.5-325MG 1 EACH TAB PO ONE ×2 (13:14)
[2017-08-08 13:58] VITALS: BP 148/80; PULSE 70; RESP 20
== END 2017-08-08 14:38 | disposition home or self-care (01) ==
LOC: OR 08:13
PROVIDERS: ATTEND Surgery
DX: K42.0 Umbilical hernia with obstruction, without gangrene (principal); K66.0 Peritoneal adhesions (postprocedural) (postinfection); J45.909 Unspecified asthma, uncomplicated; G43.909 Migraine, unspecified, not intractable, without status migrainosus; G47.419 Narcolepsy without cataplexy; F41.8 Other specified anxiety disorders; N20.0 Calculus of kidney; M19.90 Unspecified osteoarthritis, unspecified site; K21.9 Gastro-esophageal reflux disease without esophagitis; E66.01 Morbid (severe) obesity due to excess calories; Z68.39 Body mass index [BMI] 39.0-39.9, adult; L30.9 Dermatitis, unspecified; Z87.891 Personal history of nicotine dependence; Z79.899 Other long term (current) drug therapy; Z88.0 Allergy status to penicillin; Z91.013 Allergy to seafood
CPT/HCPCS: 81025; 86900; 86901; 86850; 88302; 49653; C1781; J2250; J1644; J2710; J2175; J0690; J2405; J3010; J1170; J1100; J0330; J2704

== ENCOUNTER 2018-02-23 12:31 | Emergency (ER) | payer OTHER ==
[2018-02-23 12:36] VITALS: BP 127/82; PULSE 94; RESP 20; TEMP 98.2
--- NOTE | 2018-02-23 13:06 | ED ---
General Adult HPI - General Chief complaint: Upper Respiratory Infection Stated complaint: Cough,Congestion,Sore Throat Time Seen by Provider: 02/23/18 12:37 Source: patient, RN notes reviewed Mode of arrival: ambulatory Limitations: no limitations - History of Present Illness Initial comments: 32-year-old male with history of asthma who presents the emergency department with complaints of cough productive of mucus for 1 week, sore throat for a couple days, runny nose, and congestion. Patient states that he used his updraft machine 3 times today and last used his inhaler yesterday. He does not need any refills. Patient denies any recent fever, chills, wheezing, shortness of breath, chest pain, back pain, abdominal pain, nausea or vomiting, numbness or tingling, constipation or diarrhea, headaches or visual changes, or any other complaints. - Related Data Home Medications Medication Instructions Recorded Confirmed Albuterol Inhaler [Ventolin Hfa 1 - 2 puff INHALATION RT-Q6H PRN 06/19/17 Inhaler] Albuterol Nebulized [Ventolin 2.5 mg INHALATION RT-Q6H PRN 06/19/17 07/27/17 Nebulized] Previous Rx's Medication Instructions Recorded Docusate [Colace] 100 mg PO BID #20 capsule 08/08/17 HYDROcodone/APAP 7.5-325MG [[place] 1 each PO Q4H PRN #30 tab 08/08/17 7.5] Azithromycin [Zithromax Z-pack] 0 mg PO DIRECTED #6 tab 02/23/18 Allergies Allergy/AdvReac Type Severity Reaction Status Date / Time Penicillins Allergy Unknown Verified 02/23/18 12:36 Childhood shellfish derived [Shellfish] Allergy Unknown Verified 02/23/18 12:36 Review of Systems ROS Statement: Those systems with pertinent positive or pertinent negative responses have been documented in the HPI. ROS Other: All systems not noted in ROS Statement are negative. Past Medical History Past Medical History: Asthma Additional Past Medical History / Comment(s): kidney stone, migraines, eczema, narcolepsy History of Any Multi-Drug Resistant Organisms: None Reported Past Surgical History: Orthopedic Surgery Additional Past Surgical History / Comment(s): right ankle sx", at age 10 months old had oral sx "overgrowth of skin over salivary gland" Past Anesthesia/Blood Transfusion Reactions: No Reported Reaction Past Psychological History: Anxiety Smoking Status: Former smoker Past Alcohol Use History: Rare Past Drug Use History: Marijuana - Past Family History Father History Unknown: Yes Mother Family Medical History: Hypertension General Exam - General Exam Comments Initial Comments: General: Well-developed, well-nourished, no acute distress HEENT: Slight pharynx erythema. Nasal turbinates slightly edematous. Some nasal drainage present. Tonsils are not enlarged. No exudates. No eye drainage. PERRL , swallowing well, external auditory canal no erythema, no exudates, TMs clear, no cervical lymph nodes. Neck: Supple, nontender, trachea midline Chest/Lungs: Normal respirations, no signs of respiratory distress, clear to auscultation bilaterally, no wheezes, rales, or rhonchi Cardiac: Regular rate and rhythm, normal S1-S2, no murmurs rubs or gallops Abdomen/GI: Soft, nontender, bowel sounds equal x4, no guarding, no rebound Musculoskeletal: Nontender, moving all extremities Skin: Warmth, no rashes or lesions, no cyanosis or diaphoresis Neurologic: A&O x 3 Psychiatric: Mood and affect normal, judgment normal Limitations: no limitations Course Vital Signs 02/23/18 12:35 Temperature 98.2 F Pulse Rate 94 Respiratory 20 Rate Blood Pressure 127/82 O2 Sat by Pulse 100 Oximetry Medical Decision Making - Medical Decision Making Patient is a 32-year-old male who presents the emergency department with complaints of cough productive of mucus for a week and other upper respiratory symptoms. There is no tonsillar exudates or swelling. He is afebrile here. Lungs are clear on physical exam. Patient will be discharged with Z-Jose and should follow-up with PCP in 2 days. He does not need any refills on his asthma medications. Disposition Clinical Impression: Upper respiratory infection Disposition: HOME SELF-CARE Condition: Good Instructions: Upper Respiratory Infection (ED) Additional Instructions: Follow-up with PCP in 2 days. Return to the emergency department if symptoms worsen or any other concerns. Prescriptions: Azithromycin [Zithromax Z-pack] 0 mg PO DIRECTED #6 tab Is patient prescribed a controlled substance at d/c from ED?: No Referrals: Gwen Swenson MD [Primary Care Provider] - 1-2 days Time of Disposition: 13:22
== END 2018-02-23 13:15 | disposition home or self-care (01) ==
LOC: EC 12:31
DX: J06.9 Acute upper respiratory infection, unspecified (principal); J45.909 Unspecified asthma, uncomplicated; Z87.891 Personal history of nicotine dependence; Z88.0 Allergy status to penicillin; Z91.013 Allergy to seafood
CPT/HCPCS: 99283

== ENCOUNTER → 2024-11-27 | Outpatient (CLI) | payer OTHER ==
--- NOTE | 2024-12-04 22:51 | P.PCN ---
Date of Procedure: 11/27/24 Operative Findings: Home sleep study testing Date of service is 11/28/2024 History This is a 39-year-old male patient who has excessive hypersomnia and sleepiness. The patient is sleeping more than 16 hours on a 24-hour period. His current [place] score is at 17/24. He is previously study and MSLT done back in 2006 showed a very short mean sleep latency of 2.7 minutes and he also had 2 REM onset sleep. There was no evidence of any sleep breathing disorder. Based on that, the patient was labeled as having narcoleptic disorder at a very young age. 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 The patient has not received any treatment over the past 15 years and he remains actively symptomatic regarding his narcolepsy. During this time, he has developed other comorbidities including epilepsy and migraine. He is performance status is is extremely poor. The patient has history of depression. During this time, the patient has gained considerable amount of weight and over the years, he has developed some features of obstructive sleep apnea. He is seizures have been under adequate control. Based on that, I ordered a repeat PSG and MSLT to reevaluate the patient's condition. Comorbidities include epilepsy, migraines, depression, anxiety and mild intermittent asthma Physical findings The patient has a weight of 257 pounds with a BMI of 36.9 Technical description The [employer] system was used to complete his home sleep study. This was a type III home sleep study evaluation. Total recording duration was 6 hours and 56 minutes. The study started at 1:12 AM and ended at 8:09 AM. There was a total of 6 hours and 11 minutes of flow monitoring and 6 hours and 46 minutes of oxygen saturation monitoring Results The respiratory analysis showed a total of 23 obstructive apneas and 19 obstructive hypopneas and the resulting AHI was 6.8 consistent with mild disease and the patient's AHI was up to 13.8 while being in a supine body position. Oxygenation analysis No significant nocturnal oxygen desaturation encountered and the patient continued to maintain a pulse ox above 89% throughout the sleep study Cardiac summary Average heart rate of 61 with a minimum of 45 and a maximum of 108 Assessment Mild obstructive sleep apnea that has evolved over the years. The patient has gained weight and his current body mass index is 36.9. He is AHI was 6.8 c onsistent with mild disease with some interval worsening in the supine body position. Nevertheless, disease severity is not enough to explain the patient's excessive hypersomnia and sleepiness and those symptoms are probably related to his underlying narcoleptic disorder. 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 Obviously, CPAP therapy will be of marginal benefit. May consider APAP therapy if he is willing to undertake the treatment. However, I am assuming that the predominant pathology remains narcolepsy which is causing the patient to be excessively somnolent and sleepy. The patient is being followed up by neurology. Once cleared, the patient could be considered for stimulation therapy. I was considering starting the patient on modafinil and I requested a clearance from his neurologist. Encourage weight loss The patient will be asked to sleep on his side as the patient's disease is worse in the supine body position. Maintain good sleep hygiene measures Treatment of comorbidities including seizures and patient is currently on a combination of Topamax, Keppra and Vimpat. Will continue to follow
== END ==
LOC: 3 N SLEEP 16:47
PROVIDERS: ATTEND Internal Medicine Critical Care Medicine
DX: G47.33 Obstructive sleep apnea (adult) (pediatric) (principal); E66.9 Obesity, unspecified; G43.909 Migraine, unspecified, not intractable, without status migrainosus; G40.909 Epilepsy, unspecified, not intractable, without status epilepticus; F41.9 Anxiety disorder, unspecified; F32.A Depression, unspecified; F12.90 Cannabis use, unspecified, uncomplicated; Z68.36 Body mass index [BMI] 36.0-36.9, adult; Z86.59 Personal history of other mental and behavioral disorders; Z88.0 Allergy status to penicillin; Z91.013 Allergy to seafood; Z87.891 Personal history of nicotine dependence